=== PATIENT | male | born 1955 | race African-American/Black ===

== ENCOUNTER 2018-03-30 02:49 | Observation (INO) | payer MEDICAID ==
[2018-03-30] VITALS (7 sets, daily range): BP systolic 120–189; BP diastolic 70–108; Ht 190.5 cm; Wt 112.3 kg
[~2018-03-30] VITALS: Ht 190.5 cm; Wt 112.3 kg
--- NOTE | ~2018-03-30 | HEMODYNAMI ---
PATIENT:Jose Guadalupe DENNIS MEDICAL RECORD: [id number] : 55 LOCATION:[facility] [address] ADMISSION DATE: 03/30/18 Generatedon:03/31/201815:56 Patient name: Jose Guadalupe DENNIS Patient #: [id number] SSN: : 1954 Date of study: 03/31/2018 Page: Of Hemodynamic Procedure Report Patient Data Patient Demographics Procedure consent was obtained First Name: Jose Guadalupe Gender: Male Last Name: SONNY : 1955 Middle Initial: D Age: 63 year(s) Patient #: [id number] Race: Black Additional ID: [id number] Contact details Address: [address] State: [place] City: [place] Zip code: [address] Past Medical History Allergies Allergen Reaction Date Comments Reported Other allergy 03/31/2018 TRAZODONE, ZOMIG Admission Admission Data Admission Date: 03/30/2018 Admission Time: 4:26 Room #: D.2139 Height (in.): 75 BSA: 2.4 (m2) Height (cm.): 190.5 BMI: 30.86 (kg/m2) Weight (lbs.): 246.92 Weight (kg.): 112 Lab Results Lab Result Date: 03/31/2018 Lab Result Time: 0:00 Biochemistry Name Units Result Min Max BUN mg/dl 14 --(--*-)-- 7 18 Creatinine mg/dl 1.3 --(---*)-- 0.6 1.3 CBC Name Units Result Min Max Hemoglobin g/dl 12.2 *-(----)-- 13.5 17.5 Procedure Procedure Types Cath Procedure Diagnostic Procedure LHC LHC w/Coronaries w/Grafts Sedation Charges Moderate Sedation up to 15 minutes Procedure Description Procedure Date Procedure Date: 03/31/2018 Procedure Start Time: 15:32 Procedure End Time: 15:50 Procedure Staff Name Function Ilya Melo MD Performing Physician Jodi Britton RT Monitor Lisa Alves RT Scrub Cooper Rootorah RT Scrub Jose Guadalupe Clay RN Nurse Baldemar Mcintyre RN Nurse Procedure Data Cath Procedure Fluoroscopy Diagnostic fluoroscopy Total fluoroscopy Time: 5.6 time: 5.6 min min Diagnostic fluoroscopy Total fluoroscopy dose: 784 dose: 784 mGy mGy Contrast Material Contrast Material Type Amount (ml) Isovue 300 132 Entry Location Entry Primary Successful Side Size Upsize Upsize Entry Closure Succes sful Closure Location (Fr) 1 (Fr) 2 (Fr) Remarks Device Remarks Femoral Right 5 Fr Exoseal artery Estimated blood loss: 5 ml Diagnostic catheters Device Type Used For End Catheter Placement MULTIPACK JL 4.0 5Fr Procedure catheter DIAGNOSTIC JL 5 5Fr Procedure catheter ([id number]) MULTIPACK 3DRC 5Fr Procedure catheter MULTIPACK Pigtail 5 Fr Procedure catheter DIAGNOSTIC LCB 5Fr Procedure catheter ([id number]) DIAGNOSTIC AR2 MOD 5 Fr Procedure catheter ([id number]) Procedure Complications No complications Procedure Medications Medication Administration Route Dosage 0.9% NaCl I.V. 100 ml/hr Oxygen etCO2 Nasal cannula 2 l/min Heparin Flush Bag added to field 2 bags (1000units/500ml NS) Lidocaine 2% added to field 20 Versed I.V. 0.5 mg Fentanyl I.V. 50 mcg Hemodynamics Rest BSA: 2.4 (m2) HGB: 12.2 (g/dl) O2 Consumption: Estimated: 283.46 (ml/min) O2 Con sumption indexed: Estimated:118.11 (ml/min/m) Heart Rate: 73 (bpm) Pressure Samples Time Site Value (mmHg) Purpose Heart Use Rate(bpm) 15:40 LV 159/3,16 Snapshot 68 15:41 AO 159/87(117) Pullback 68 15:41 LV 161/11,22 Pullback 68 Gradients Valve Time Site 1 Site 2 Mean SEP/DFP Peak To Heart Use (mmHg) (sec/min) Peak Rate (mmHg) (bpm) Aortic 15:41 LV AO 1 13 2 68 161/11,22 159/87(117) Calculations Valve P-P Mean Valve Index Valve Source Name Gradient Area Flow (cm2) Aortic 2 1 2 1 Snapshots Pre Cath Intra NCS Post Cath Vital Signs Time Heart Resp SPO2 etCO2 NIBP (mmHg) Rhythm Pain Sedation Rate (ipm) (%) (mmHg) Status Level (bpm) 15:22:13 71 18 100 13.4 171/112(138) NSR 0 (11) 10(A) , No pain 15:26:38 70 22 100 29 172/109(135) NSR 0 (11) 10(A) , No pain 15:30:56 68 27 99 13.4 162/105(121) NSR 0 (11) 10(A) , No pain 15:35:14 68 12 100 34.3 163/102(145) NSR 0 (11) 10(A) , No pain 15:39:36 69 19 100 10.4 157/101(126) NSR 0 (11) 10(A) , No pain 15:43:56 69 31 100 26 173/102(136) NSR 0 (11) 10(A) , No pain 15:48:20 68 18 100 11.9 168/104(133) NSR 0 (11) 10(A) , No pain Medications Time Medication Route Dose Verified Delivered Reason Notes Eff ectiveness by by 15:27:44 0.9% NaCl I.V. 100 Baldemar Baldemar Per ml/hr Miguelina Mcintyre physician RN RN 15:27:54 Oxygen etCO2 2 Baldemar Baldemar Per Nasal l/min Miguelina Mcintyre physician cannula RN RN 15:28:06 Heparin Flush added 2 Baldemar Baldemar used for Bag to bags Lorigan Lorkamryn procedure (1000units/500ml [facility] RN RN NS) 15:28:20 Lidocaine 2% added 20ml Baldemar Baldemar for local to vial Lorigan Lorigan anesthetic field RN RN 15:28:40 Versed I.V. 0.5 Baldemar Baldemar for mg Lorigan Lorigan sedation RN RN 15:28:52 Fentanyl I.V. 50 Baldemar Baldemar for mcg Lorigan Lorigan sedation RN seafood preparer Log Time Note 15:00:30 Lisa Alves RT(R) sent for patient. Start room use. 15:00:31 Signed procedure consent form obtained from patient. 15:00:32 Diagnostic Cath status Elective 15:00:33 Time tracking: Regular hours (M-F 7:00 - 5:00) 15:00:36 Plan of Care:Hemodynamics will remain stable., Cardiac rhythm will remain stable., Comfort level will be maintained., Respiratory function will remain adequate., Patient/ family verbilizes understanding of procedure., Procedure tolerated without complication., Recovers from procedure without complications.. 15:04:00 Patient allergic to Other allergyTRAZODONE, ZOMIG 15:04:22 Patient Height : 75 inches 15:04:30 Patient Weight : 246.92 lbs 15:05:40 Lab Result : BUN 14 mg/dl 15:05:40 Lab Result : Hemoglobin 12.2 g/dl 15:05:40 Lab Result : Creatinine 1.3 mg/dl 15:08:38 Patient received from Med II to CCL 1 Alert and oriented. Tansferred to table in Supine position. 15:08:39 Warm blankets applied, and susan hugger turned on for patient comfort. 15:08:39 Correct patient and procedure confirmed by team. 15:08:40 ECG and BP/O2 sat monitors applied to patient. 15:20:59 Vital chart was started 15:21:01 Baseline sample Acquired. 15:21:04 Rhythm: sinus rhythm 15:21:06 Full Disclosure recording started 15:21:07 Pre-procedure instructions explained to patient. 15:21:07 Pre-op teaching completed and patient verbalized understanding. 15:21:26 Patient NPO since Midnight. 15:21:28 Is patient on blood thinner?No 15:21:30 Patient diabetic? Yes. 15:21:30 If diabetic: On Metformin? No 15:21:33 Previous problem with sedation/anesthesia? No ? 15:21:35 Snore? Yes 15:21:36 Sleep apnea? No 15:21:37 Deviated septum? No 15:21:39 Opens mouth fully? Yes 15:21:41 Sticks out tongue? Yes 15:21:51 Airway obstruction? Yes COPD 15:22:00 Dentures? Yes IN TIGHT 15:22:04 Pre procedure: right dorsailis pedis pulse 1+ Palpable, but thready & weak; easily obliterated 15:22:14 Lab results completed and on chart. 15:22:17 Right groin area was prepped with chlora-prep and draped in sterile fashion 15:22:18 Alarms reviewed by R. N. 15:22:19 Sharps counted by scrub and verified by R.N. 15:23:52 Use device set Femoral Dx 15:23:53 ACIST Syringe (28313) opened to sterile field. 15:23:54 Bag Decanter (2001S) opened to sterile field. 15:23:54 ACIST Hand Control (36979) opened to sterile field. 15:23:55 ACIST Manifold (42925) opened to sterile field. 15:23:56 Tegaderm 4 x 4 (1626W) opened to sterile field. 15:23:57 Medline Cath Pack ([id number]) opened to sterile field. 15:23:57 DIAGNOSTIC WIRE .035 260cm J wire (528410) opened to sterile field. 15:23:58 DIAGNOSTIC Multipack 5Fr catheter set ([id number]) opened to sterile field. 15:23:59 SHEATH 5FR [place] (HXA680) opened to sterile field. 15:27:17 --------ALL STOP TIME OUT------ 15::17 Final Timeout: patient, procedure, and site verified with staff and physician. All members of the team are in agreement. 15:27:20 Right groin site verified by team. 15:27:24 Fire Safety Assessment: A--An alcohol-based skin anteseptic being used preoperatively., C--Open oxygen or nitrous oxide is being used., D--An ESU, laser, or fiber-optic light is being used. 15:27:27 Physical assessment completed. ASA score P 2 - A patient with mild systemic disease as per Ilya Melo MD. 15:27:31 Sedation plan: IV Moderate Sedation Medication:Versed, Fentanyl 15:27:36 Zero performed for pressure channel P1 15::44 0.9% NaCl 100 ml/hr I.V. was administered by Baldemar Mcintyre RN; Per physician; 15::54 Oxygen 2 l/min etCO2 Nasal cannula was administered by Baldemar Mcintyre RN; Per physician; 15:28:06 Heparin Flush Bag (1000units/500ml NS) 2 bags added to field was administered by Baldemar Mcintyre RN; used for procedure; 15::20 Lidocaine 2% 20ml vial added to field was administered by Baldemar Mcintyre RN; for local anesthetic; 15:28:40 Versed 0.5 mg I.V. was administered by Baldemar Mcintyre RN; for sedation; 15::52 Fentanyl 50 mcg I.V. was administered by Baldemar Mcintyre RN; for sedation; 15:32:04 Procedure started. 15:32:09 Local anesthetic to right femoral artery with Lidocaine 2% by Ilya Melo MD.INITIAL ACCESS ONLY 15:33:12 A 5 Fr sheath was inserted into the Right Femoral artery 15:33:18 A MULTIPACK JL 4.0 5Fr catheter was advanced over the wire and used for Procedure. 15:34:36 UNABLE TO ENGAGE. CATH REMOVED 15:34:47 A DIAGNOSTIC JL 5 5Fr catheter ([id number]) was advanced over the wire and used for Procedure. 15:35:35 LCA angiography performed. 15:35:43 Catheter removed. 15:35:48 A MULTIPACK 3DRC 5Fr catheter was advanced over the wire and used for Procedure. 15:37:53 RCA angiography performed. 15:38:14 SVG to RCA angiography performed. 15:39:42 Catheter removed. 15:39:55 A MULTIPACK Pigtail 5 Fr catheter was advanced over the wire and used for Procedure. 15:40:25 LV gram done using JIMÉNEZ 15:40:28 Injector settings: Ml/sec: 10, Volume: 20, 15:40:54 LV hemodynamics recorded. 15:41:09 EF : 30 % 15:41:39 Aortic Root visualized 15:42:20 Catheter removed. 15:43:01 A DIAGNOSTIC LCB 5Fr catheter ([id number]) was advanced over the wire and used for Procedure. 15:43:45 SVG to Diag angiography performed. 15:45:07 Catheter removed. 15:46:00 A DIAGNOSTIC AR2 MOD 5 Fr catheter ([id number]) was advanced over the wire and used for Procedure. 15:47:02 Catheter removed. 15:47:17 EXOSEAL 5Fr (EX500) opened to sterile field. 15:48:04 Sheath removed intact; hemostasis achieved with Exoseal to the Right Femoral artery. 15:48:07 Procedure ended.(Physican Out) 15:48:44 Fluoroscopy time 05.60 minutes. 15:48:50 Fluoroscopy dose: 784 mGy 15:48:50 Flurop Dose total: 784 15:48:58 Contrast amount:Isovue 300 132ml. 15:49:00 Sharps counted by scrub and verified by R.N. 15:49:04 Post-op/insertion site Right Femoral artery dressed using a 4 x 4 and Tegaderm. 15:49:07 Post-procedure physical assessment completed. ASA score P 2 - A patient with mild systemic disease as per Ilya Melo MD. 15:49:09 Post procedure rhythm: sinus rhythm 15:49:11 Estimated blood loss: 5 ml 15:49:12 Post procedure instruction explained to patient.Patient verbalizes understanding. 15:49:12 Patient needs reinforcement of post procedure teaching. 15:49:45 Procedure type changed to Cath procedure, Diagnostic procedure, LHC, LHC w/Coronaries w/Grafts, Sedation Charges, Moderate Sedation up to 15 minutes 15:50:06 Procedure and supply charges have been captured, reviewed, submitted and are correct. 15:50:08 Procedure Complication : No complications 15:50:10 Vital chart was stopped 15:50:11 See physician's report for complete and final results. 15:50:13 Report given to PCU. 15:50:15 Patient transfered to PCU with Bed. 15:50:17 Procedure ended. 15:50:17 Full Disclosure recording stopped 15:50:21 End room use (Document Last) Device Usage Item Name Manufacture Quantity Catalog Hospital Part Current Minimal L ot# / Number Charge Number Stock Stock Serial# Code ACIST Acist 1 08750 692991 879350 754585 20 Syringe Medical (68954) Systems Inc Bag Microtek 1 913951 42306 155631 5 Decanter Medical Inc. () ACIST Hand Acist 1 18342 799552 383061 444520 5 Control Medical (91299) Systems Inc ACIST Acist 1 82815 968296 324655 076591 5 Manifold Medical (80257) Systems Inc Tegaderm 4 3M 1 1626W 311044 867495 016714 5 x 4 (1626W) Medline Medline 1 [id number] 236897 61665 813347 5 Cath Pack ([id number]) DIAGNOSTIC St Shiva 1 755479 929564 690358 671368 30 WIRE .035 260cm J wire (490834) DIAGNOSTIC Cardinal 1 [id number] 897610 62549 998906 30 Multipack Health 5Fr catheter set (SC2588) SHEATH 5FR Terumo 1 [id number] 127870 600580 477341 5 [place] (JWQ668) MULTIPACK Cardinal 1 696923 5 JL 4.0 5Fr Health catheter DIAGNOSTIC Cardinal 1 [id number] 755583 544364 176995 5 JL 5 5Fr Health catheter (792731F) MULTIPACK Cardinal 1 508478 5 3DRC 5Fr Health catheter MULTIPACK Cardinal 1 072750 5 Pigtail 5 Health Fr catheter DIAGNOSTIC Cardinal 1 [id number] 944574 003006 052410 5 LCB 5Fr Health catheter (198063M) DIAGNOSTIC Cardinal 1 [id number] 264892 960180 672374 20 AR2 MOD 5 Health Fr catheter (687569N) EXOSEAL 5Fr Cardinal 1 EX500 434432 316362 218660 10 (EX500) Health Signature Audit Desmet Stage Time Signature Unsigned Intra-Procedure 03/31/2018 Jodi Britton 3:56:10 PM RT(R) Signatures Monitor : Jodi Britton Signature : RT Date : Time : [id number] [place] [address]
[2018-03-30] MEDS ORDERED: FERROUS SULFAT325 MG PO (02:56)
[2018-03-30] MEDS ORDERED: ALPHAGAN P15 ML LEFT EYE (02:56)
[2018-03-30] MEDS ORDERED: HUMULIN 70100 UNIT/1 SC (02:56)
[2018-03-30] MEDS ORDERED: HYDRALAZINE HCL10 MG PO (02:56)
[2018-03-30] MEDS ORDERED: NEURONTIN 400400 MG PO (02:56)
[2018-03-30] MEDS ORDERED: LEVEMIR IN100 UNITS/ SC (02:57)
[2018-03-30] MEDS ORDERED: LIPITOR20 MG PO (02:57)
[2018-03-30 03:31] LABS: BASOPHILS 0.9 % (0-2); EOSINOPHILS 7.9 % (0-7); HEMATOCRIT 36.3 % (42.0-54.0); HEMOGLOBIN 11.9 g/dL (13.5-17.5); IMMATURE GRANULOCYTES 0.2 % (0-5); LYMPHOCYTES 24.1 % (15-50); MCH 26.9 pg (26.0-34.0); MCHC 32.8 g/dL (31.0-37.0); MCV 82.1 fL (80.0-100.0); MEAN PLATELET VOLUME 9.5 fL (7.4-10.4); MONOCYTES 13.7 % (2-11); NEUTROPHILS 53.2 % (40-80); PLATELET COUNT 230 10x3/uL (130-400); RBC 4.42 10x6/uL (4.20-6.10); RDW 14.3 % (11.5-14.5); WBC 5.7 10x3/uL (4.8-10.8)
[2018-03-30 03:56] LABS: ALBUMIN 2.7 g/dL (3.4-5.0); ANION GAP 3.6 mmol/L (8-16); BILIRUBIN - TOTAL 0.14 mg/dL (0.2-1.3); CALCIUM 8.3 mg/dL (8.5-10.1); CARBON DIOXIDE 22.7 mmol/L (21.0-32.0); CREATININE - SERUM 1.4 mg/dL (0.6-1.3); POTASSIUM - SERUM 3.3 mmol/L (3.5-5.1); PROTEIN - SERUM 6.4 g/dL (6.4-8.2); TROPONIN-I 0.034 ng/mL (0.000-0.060)
--- NOTE | 2018-03-30 06:24 | NUR ---
RECEIVED FROM ER VIA WC. ALERT/ORIENTED X3. AMBULATES WITH CANE. DENIES PAIN. IV IN L FA INTACT SL. ORIENTED TO ROOM AND CALL LIGHT.
[2018-03-30] MEDS ORDERED: NORVASC10 MG PO (06:48)
[2018-03-30] MEDS ORDERED: VITAMIN D31000 UNI2 PO (06:50)
[2018-03-30] MEDS ORDERED: ASPIRIN325 MG PO (06:51)
--- NOTE | 2018-03-30 07:04 | NUR ---
DOES NOT KNOW THE NAME OF PHARMACY. HE IS A RESIDENT OF [facility] AND USES THEIR PHARMACY.
--- NOTE | 2018-03-30 08:04 | NUR ---
RESTING QUIETLY NAD NOTED
--- NOTE | 2018-03-30 08:07 | NUR ---
DR. MCCORMACK STATES TO ME TO PLACE PT ON OXYGEN AND TO GIVE AM MEDS SPECIFICALLY LOVENOX AND TO PLACE PT ON TELEMETRY AND WATCH HIM CLOSELY BECAUSE HE SUSPECTS PT HAS A PE. HE ALSO STATES HE ORDERED A CTA.
--- NOTE | 2018-03-30 08:09 | NUR ---
PT PLACED ON OXYGEN AT 2L VIA NC AND TELEMETRY.
--- NOTE | 2018-03-30 08:18 | NUR ---
RUBYNOX INJ NOT IN PYXIS OR GLOBAL FIND. CALLED PHARMACY AND SPOKE WITH MAXWELL AND STATED TO HIM WANTS ME TO GIVE IT RIGHT NOW. HE STATED THEY ARE LOADING IT NOW AND WILL GET IT UP TO ME.
--- NOTE | 2018-03-30 08:39 | NUR ---
PT TO BE NPO FOR CTA. PT JUST ATE BREAKFAST. SPOKE WITH HARISH FROMCT HE STATES HE IS AWARE AND THAT HE WILL GET PT BEFORE LUNCH.
--- NOTE | 2018-03-30 08:41 | NUR ---
PT WANTING SCRUBS. SPOKE WITH EBONY AND THEY STATE THEY WILL BRING SOME UP.
--- NOTE | 2018-03-30 11:07 | NUR ---
PT REFUSED INSULIN COVERAGE FOR BS OF 156.
--- NOTE | 2018-03-30 12:33 | HP ---
PATIENT: Jose Guadalupe DENNIS MEDICAL RECORD: [id number] ACCOUNT: [id number] LOCATION:[address] : 55 ADMISSION DATE: 03/30/18 PCP: No PCP HISTORY AND PHYSICAL EXAMINATION REASON FOR ADMISSION: Shortness of breath. HISTORY OF PRESENT ILLNESS: The patient is a 63-year-old -Ivorian male, former , who states he was hospitalized at [facility] on 03/11/2018 because of relapse on alcohol and cocaine. He was discharged the 03/17/2018 and insurance referred him to [facility] in [place]. He has been there for 10 days and said he has been doing well and has gotten through his withdrawal symptoms. He states he has been chronically short of breath since July of last year when he had a pulmonary embolus. He was treated in the [facility] for 7 days and discharged on Xarelto. He states he was on Xarelto up until going into [place] and they did not give several of his medications including that. He notes increased shortness of breath with exertion in the last 4 days, woke him up from sleep last night, but he denied chest pain or hemoptysis. For that reason, he came into Emergency Room. On evaluation in the ED, the patient showed a mildly elevated proBNP and negative cardiac enzymes. Chest x-ray was performed showing no acute disease according to the ER physician. He was admitted to ar unassigned call for congestive heart failure. He has had no increasing peripheral edema and no history of heart failure. PAST MEDICAL HISTORY: PE in July of 2017, he said he did not have DVT. History of diabetes mellitus for 20 years, hyperlipidemia, hypertension fairly volatile, coronary artery disease with a 3-vessel CABG in 2004 and 2-vessel PTCA in 2017 at the [facility] [place]. 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 PAST SURGICAL HISTORY: Three-vessel CABG in 2004 in [place], [place]. PTCA 2 vessels in [facility] in 2017, right total knee replacement, right hip replacement. He has had a lumbar fusion and enucleated right eye and prosthesis placed. FAMILY HISTORY: Mother of hypertension and DC. Father of CVA. One brother and one sister with diabetes. ALLERGIES: TRAZODONE AND AMBIEN. HOME MEDICATIONS: Alphagan drops 1 drop left eye t.i.d., amlodipine 10 mg daily, vitamin D 1000 units daily, aspirin 325 mg a day, losartan 100 mg a day, triamterene 1 q.a.m., loratadine 10 mg a day, Wellbutrin 300 mg daily, multivitamin 1 daily, Levemir 34 units subq q.h.s., atorvastatin 40 mg at h.s., ferrous sulfate 325 one daily, gabapentin 400 mg p.o. t.i.d., hydralazine 25 mg p.o. q.8 hours, regular insulin 10 units b.i.d. a.c. He said he also takes Coreg, he is not sure what dose and Xarelto he is unsure what dose, but has been noncompliant on several of these drugs for the last 10 days. REVIEW OF SYSTEMS: GENERAL: No fever. HEENT: No recent visual changes in the left eye. He is blind in his right eye. RESPIRATORY: He has had exertional shortness of breath, worse in the last 4 days, severe last night, awakened from sleep. He denies chest pain, cough, hemoptysis, or increasing peripheral edema. CARDIAC: No exertional chest pain, claudication or edema. HISTORY AND PHYSICAL [id number] Jose Guadalupe DENNIS GASTROINTESTINAL: No nausea, vomiting, change in stools or blood per rectum, history of liver disease or ulcers. ENDOCRINE: Denies polyuria, polydipsia, heat or cold intolerance. NEUROLOGIC: No history of stroke, TIA, vascular headaches, or seizures. INTEGUMENT: No rash or itching. PSYCHIATRIC: Denies depressed mood. He was quite anxious coming off cocaine, but that has improved currently. PHYSICAL EXAMINATION: VITAL SIGNS: His height 6 feet 3 inches, weight is 248 pounds, heart rate is 83 and regular, respirations are 18, blood pressure was 189/108 initially with a sat of 97% on room air. HEENT: Normocephalic. Right eye shows prosthesis. Left eye shows pinpoint pupils, but reactive. Oropharynx unremarkable. NECK: No bruits or masses. CHEST: Distant breath sounds without wheeze or rales. No crackles. HEART: Regular rate without MGR. PMI appropriate. ABDOMEN: Obese, soft, nontender. No masses or bruits noted. GENITOURINARY: Deferred. EXTREMITIES: He has a scar over right hip and right knee from previous replacement. He has no peripheral edema. NEUROLOGICAL: Oriented to person, place, and time. Cranial nerves intact. Gait is normal. He has no tremor appreciated. LABORATORY DATA: White count of 5700, H&H of 11.9 and 36.3 and normal diff. Chemistry: Sodium is 124, potassium is 3.3, BUN and creatinine are 18 and 1.4, glucose is 107. ProBNP is 1033. Lipase is normal. D-dimer is 0.5. Cardiac enzymes are negative times 2. Chest x-ray reportedly clear. EKG shows sinus rhythm, rate of 84, left atrial enlargement, first degree AV block, no old EKG to compare. ASSESSMENT: 1. Dyspnea with history of PE, off of Xarelto, concern for recurrence. 2. CAD, diabetes mellitus, uncontrolled hypertension, due to recent medication noncompliance. History of polydrug abuse, alcoholism, hyponatremia, hypokalemia, probably due to diuretic therapy. PLAN: The patient will be placed on monitor. We will obtain a CTA PE protocol. He has had cardiology consult placed for hypertension management. We will check echo, telemetry. Further workup pending clinical course. TRANSINT:[id number] Voice Confirmation ID: [id number] DOCUMENT ID: [id number] KALA MCCORMACK MD at 1233 CC: [id number] DICTATION DATE: 03/30/18809 [employer] PURCHASE AND SALE CLERK: 03/30/18 0841 ADM IN [id number] [place] [address]
--- NOTE | 2018-03-30 12:59 | NUR ---
PT TAKEN FOR CTA VIA WC.
--- NOTE | 2018-03-30 15:28 | NUR ---
DR. MCCORMACK WANTED CTA RESULTS CALLED INTO HIM. CALLED DR. MCCORMACK'S OFFICE AND GOT VOICEMAIL MACHINE. LEFT VOICEMAIL.
--- NOTE | 2018-03-30 19:25 | NUR ---
ALERT/AWAKE SITTING IN BEDSIDE CHAIR. DENIES PAIN OR ANY NEEDS. IV IN L FA INTACT WITH NS INFUSING AT 75ML/HR. ORIENTED TO CALL LIGHT FOR ANY NEEDS.
--- NOTE | 2018-03-30 22:10 | NUR ---
SPILLED WATER ON FLOOR. CLEANED UP WITH TOWELS. REQUESTED ANOTHER SET OF SOCKS.
[2018-03-31] VITALS (7 sets, daily range): BP systolic 146–182; BP diastolic 77–109
--- NOTE | 2018-03-31 03:15 | NUR ---
RESTING WITH EYES CLOSED. SNORING LIGHTLY. NO S/S OF DISTRESS OR DISCOMFORT. CL IN REACH.
--- NOTE | 2018-03-31 06:00 | NUR ---
CHECKED BS AT 130. ADMIN EYE DROPS. DENIES ANY OTHER NEEDS.
--- NOTE | 2018-03-31 08:09 | NUR ---
AM MEDS GIVEN AT THIS TIME. PT DENIES ANY NEEDS AT THIS TIME. CALL LIGHT IN REACH, NAD NOTED, WILL CONTINUE TO MONITOR.
--- NOTE | 2018-03-31 09:02 | NUR ---
NOTIFIED VIVIANE WITH ACID REGENERATOR THAT PT HAD LOVENOX INJECTION THIS AM. VIVIANE STATED THAT THEY WOULD TAKE PT TO ACID REGENERATOR THIS AFTERNOON. INFORMED PT.
[2018-03-31 09:34] LABS: BASOPHILS 1.1 % (0-2); EOSINOPHILS 7.2 % (0-7); HEMATOCRIT 38.4 % (42.0-54.0); HEMOGLOBIN 12.2 g/dL (13.5-17.5); IMMATURE GRANULOCYTES 0.2 % (0-5); LYMPHOCYTES 25.2 % (15-50); MCH 25.7 pg (26.0-34.0); MCHC 31.8 g/dL (31.0-37.0); MCV 80.8 fL (80.0-100.0); MEAN PLATELET VOLUME 9.9 fL (7.4-10.4); MONOCYTES 10.9 % (2-11); NEUTROPHILS 55.4 % (40-80); PLATELET COUNT 232 10x3/uL (130-400); RBC 4.75 10x6/uL (4.20-6.10); RDW 14.1 % (11.5-14.5); WBC 5.7 10x3/uL (4.8-10.8)
[2018-03-31 09:37] LABS: ANION GAP 11.5 mmol/L (8-16); CALCIUM 8.6 mg/dL (8.5-10.1); CREATININE - SERUM 1.3 mg/dL (0.6-1.3); POTASSIUM - SERUM 3.5 mmol/L (3.5-5.1)
--- NOTE | 2018-03-31 13:59 | NUR ---
PT RESTING COMFORTABLY IN BED, DENIES ANY NEEDS AT THIS TIME. CALL LIGHT IN REACH, NAD NOTED, WILL CONTINUE TO MONITOR.
--- NOTE | 2018-03-31 15:09 | NUR ---
PT TRANSFERED TO BUMPER MACHINE OPERATOR.
--- NOTE | 2018-03-31 16:14 | NUR ---
RECEIVED PT BACK TO ROOM 2139 VIA BED, PT STILL DROWSY BUT EASILY AROUSES TO VOICE. VITAL SIGNS STABLE, PLACED PT ON FREQUENT VITAL SIGNS. RT GROIN DRESSING CDI, NO SIGN OF BLEEDING OR HEMATOMA NOTED. PT ASKIN FOR SOMETHING TO EAT, WILL ORDER HIM A CHEESEBURGER. PT DENIES ANY OTHER NEEDS AT THIS TIME. CALL LIGHT IN REACH,NAD NOTED, WILL CONTINUE TO MONITOR.
--- NOTE | 2018-03-31 16:46 | NUR ---
NO CHANGES TO GROIN FROM PREVIOUS ASSESSMENT.
--- NOTE | 2018-03-31 19:15 | NUR ---
PT UP WALKING AROUND IN HALLS TO AND FROM VENDING MACHINE. PT ALERT AND ORIENTED. DENIES ANY PAIN OR NEEDS AT THIS TIME. WILL CONTINUE TO MONITOR.
--- NOTE | 2018-03-31 21:00 | NUR ---
PT IN ROOM SITTING ON SIDE OF BED WATCHING TV. PT DENIES ANY PAIN OR NEEDS AT THIS TIME. EDUCATED PT ON IMPORTANCE OF GETTING LAYING DOWN AND GETTING REST. PT UNDERSTOOD AND IS NOW RESTING . PT DENIES ANY NEEDS OR PAIN AT THIS TIME. CALL LIGHT WITHIN REACH. WILL CONTINUE TO MONITOR.
[2018-04-01] VITALS (7 sets, daily range): BP systolic 160–198; BP diastolic 88–111
--- NOTE | 2018-04-01 03:48 | NUR ---
PT AWAKE WATCHING TV, DENIES ANY NEEDS. ALERT, RESP EVEN AND UNLABORED. BEDLOW AND CALL LIGHT IN REACH. PT WILL CALL FOR ASSIST WHEN NEEDED. WILL CPOC
--- NOTE | 2018-04-01 03:49 | NUR ---
PT LAYING IN BED WITH ALERT AND ORIENTED. RESPIRATIONS EVEN AND UNLABORED. BED LOW CALL LIGHT WITHIN REACH. WILL CONTINUE TO MONITOR.
--- NOTE | 2018-04-01 04:19 | NUR ---
PT BP-198/111. GAVE PT PRN CLONIDINE. SEE MAR. PT SITTING UP IN BED. WILL CONTINUE TO MONITOR.
[2018-04-01 04:37] LABS: ANION GAP 13.3 mmol/L (8-16); CALCIUM 8.5 mg/dL (8.5-10.1); CARBON DIOXIDE 24.5 mmol/L (21.0-32.0); CREATININE - SERUM 1.5 mg/dL (0.6-1.3); POTASSIUM - SERUM 3.8 mmol/L (3.5-5.1)
--- NOTE | 2018-04-01 05:12 | NUR ---
PT LAYING IN BED ALERT AND ORIENTED. BP-166/98 P-83. BED LOW CALL LIGHT WITHIN REACH. WILL CONTINUE TO MONITOR.
--- NOTE | 2018-04-01 08:00 | NUR ---
RECIEVED BEDSIDE REPORT. AM ROUNDS COMPLETED. PT VSS, AA0X3 RR UNLABORED, NO S/S OF DISTRESS. PT COMPLAIN ON PAIN IN THE HEAD AND LOWER BACK. TYLENOL 500MG GIVEN ALONGSIDE AM MEDS. WILL REASSESS PT IN 45MIN. PT DENIES ANY FURTHER NEEDS AT THIS TIME. WILL CPOC. CL IN REACH, SR UP 2X, BED IN LOW. WILL CTM.
[2018-04-01] MEDS ORDERED: COREG 3.1253.125 MG PO (10:14)
[2018-04-01] MEDS ORDERED: CARDURA4 MG PO (10:19)
[2018-04-01] MEDS ORDERED: ISOSORBIDE DINI30 MG PO (10:20)
[2018-04-01] MEDS ORDERED: COZAAR100 MG PO (10:21)
[2018-04-01] MEDS ORDERED: XALATAN 0.0052.5 ML LEFT EYE (10:21)
--- NOTE | 2018-04-01 16:40 | MORECARE ---
CASE MANAGEMENT DISCHARGE SUMMARY PATIENT: Jose Guadalupe DENNIS UNIT: [id number] ADM DATE: 03/30/18 AGE: 63 : 55 SEX: M ROOM/BED: D.2139 AUTHOR: ELVIN DUNN PHYSICIAN: REFERRING PHYSICIAN: SANDIE BARR MD DATE OF SERVICE: 04/01/18 Discharge Plan Patient Name: Jose Guadalupe DENNIS [facility] [facility] 1955 Planned Disposition: Other Type of Facility Anticipated Discharge Date: 04/01/18 Discharge Date: Expected LOS: 2 Initial Reviewer: [email or web address] Initial Review Date: 04/01/2018 Generated: 04/01/18 5:39 pm DCPIA - Discharge Planning Initial Assessment Updated by [email or web address]: Tenzin Temple on 04/01/18 4:36 pm * Is the patient Alert and Oriented? Yes * How many steps to enter\exit or inside your home? NONE * PCP DR. SÁCNHEZ, [facility] [place] * Pharmacy [facility] OR [facility] * Preadmission Environment Other * Other Environment [facility] * Facility Name [place], [place] * ADLs Independent * Equipment Cane * Other Equipment [facility] MEDICAL EQUIPMENT PROVIDER * List name and contact numbers for known caregivers / representatives who currently or will assist patient after discharge: RAMIRO WEST, FRIEND, * Verbal permission to speak to the caregivers and representatives has been obtained from the patient. N/A * Community resources currently utilized Other * Please name any agencies selected above. [facility] 30 DAY ADDICTION RECOVERY PROGRAM * Additional services required to return to the preadmission environment? No * Can the patient safely return to the preadmission environment? Yes * Has this patient been hospitalized within the prior 30 days at any hospital? No Patient Name: Jose Guadalupe DENNIS Page 25162 at 1640 All edits/amendments must be made on the electronic document DICTATION DATE: 04/01/18 1639 FRUIT GROWER: KEITH 04/01/18 1639 RPT#: [id number] DC DATE: STATUS: ADM IN [facility] [address] [place] [address] END OF REPORT
--- NOTE | 2018-04-01 16:48 | MORECARE ---
CASE MANAGEMENT DISCHARGE SUMMARY PATIENT: Jose Guadalupe DENNIS UNIT: [id number] ADM DATE: 03/30/18 AGE: 63 : 55 SEX: M ROOM/BED: D.2139 AUTHOR: ELVIN DUNN PHYSICIAN: REFERRING PHYSICIAN: SANDIE BARR MD DATE OF SERVICE: 04/01/18 Discharge Plan Patient Name: Jose Guadalupe DENNIS Facility: [facility]:[place] : 1955 Planned Disposition: Other Type of Facility Anticipated Discharge Date: 04/01/18 Discharge Date: Expected LOS: 2 Initial Reviewer: [email or web address] Initial Review Date: 04/01/2018 Generated: 04/01/18 5:48 pm DCPIA - Discharge Planning Initial Assessment Updated by [email or web address]: Tenzin Temple on 04/01/18 4:36 pm * Is the patient Alert and Oriented? Yes * How many steps to enter\exit or inside your home? NONE * PCP DR. SÁNCHEZ, [facility] IN [place] * Pharmacy [facility] OR [facility] * Preadmission Environment Other * Other Environment [facility] * Facility Name [place], [place] * ADLs Independent * Equipment Cane * Other Equipment [facility] MEDICAL EQUIPMENT PROVIDER * List name and contact numbers for known caregivers / representatives who currently or will assist patient after discharge: RAMIRO WEST, FRIEND, * Verbal permission to speak to the caregivers and representatives has been obtained from the patient. N/A * Community resources currently utilized Other * Please name any agencies selected above. [facility] 30 DAY ADDICTION RECOVERY PROGRAM * Additional services required to return to the preadmission environment? No * Can the patient safely return to the preadmission environment? Yes * Has this patient been hospitalized within the prior 30 days at any hospital? No External Providers External Provider: OTHER-OTHER Next Contact Date: 04/01/2018 Service Request Date: Service Type: Resolution: Reviewer: Comments: Last DP export: 04/01/18 3:39 pm Patient Name: Jose Guadalupe DENNIS Page 70516 at 1648 All edits/amendments must be made on the electronic document DICTATION DATE: 04/01/181647 IRISH MOSS BLEACHER: KEITH 04/01/181647 RPT#: [id number] DC DATE: STATUS: ADM IN [facility] [address] [place] [address] END OF REPORT
--- NOTE | 2018-04-01 16:50 | NUR ---
PT CURRENTLY SLEEPING ON THE COUCH. DENIES ANY NEEDS AT THIS TIME. PM MEDS GIVEN ALONGSIDE HUMULIN. PT DENIES ANY FURTHER NEEDS AT THIS TIME WILL CPOC.
--- NOTE | 2018-04-01 17:06 | MORECARE ---
CASE MANAGEMENT DISCHARGE SUMMARY PATIENT: Jose Guadalupe DENNIS UNIT: [id number] ADM DATE: 03/30/18 AGE: 63 : 55 SEX: M ROOM/BED: D.2133 AUTHOR: MONADOC PHYSICIAN: REFERRING PHYSICIAN: SANDIE BARR MD DATE OF SERVICE: 04/01/18 Discharge Plan Patient Name: Jose Guadalupe DENNIS [facility] [facility] 1955 Planned Disposition: Other Type of Facility Anticipated Discharge Date: 04/01/18 Discharge Date: Expected LOS: 2 Initial Reviewer: [email or web address] Initial Review Date: 04/01/2018 Generated: 04/01/18 6:06 pm Comments DCP- Discharge Planning Updated by [email or web address]: Tenzin Temple on 04/01/18 4:[address] Patient Name: Jose Guadalupe DENNIS Admission Status: ER Accout number: [id number] Admission Date: 03-30-2018 : 1955 Admission Diagnosis: Attending: SANDIE BARR Current LOS: 2 Anticipated DC Date: 04-01-2018 Planned Disposition: Other Type of Facility Primary Insurance: [place] PRIVATE OPTIONS [place] PLANNED EXTERNAL PROVIDER: BON JIANG Discharge Planning Comments: CM RECEIVED ORDER TO DISCHARGE ARRANGEMENT AND FOLLOW UP WITH [facility] CARDIOLOGY MAY DISCHARGE TODAY. CM MET WITH PT IN ROOM TO DISCUSS DISCHARGE PLANNING AND NEEDS. PT REPORTS LIVING AT HOME INDEPENDENTLY WITH A FRIEND. PT IS CURRENTLY IN [facility] 30 DAY ADDICTION RECOVERY PROGRAM INPATIENT. PT HAS CANE, MEDICAL EQUIPMENT PROVIDER PREFERENCE IS [facility]. PT HAS NO OUTSIDE SERVICES ASSISTING IN THE HOME. CM DISCUSSED AVAILABILITY OF HOME HEALTH, REHAB SERVICES AND MEDICAL EQUIPMENT. PT DENIES DISCHARGE NEEDS, REPORTS [facility] COUNSELOR WILL PICK HIM UP FOR DISCHARGE WHEN PT CALLS; PT HAS PHONE NUMBER. PT IS ACTIVE WITH [facility] IN [place], DOES NOT HAVE CURRENT CARDIOLOGY APPOINTMENT THAT HE IS AWARE OF. PT WOULD LIKE CM TO CONTACT THE [facility] FOR HIM AND MAKE THE APPOINTMENT. CM CALLED [facility], , SPOKE TO GENESIS WHO INFORMED CM THAT CM WILL NEED TO FAX CONSULT ORDER AND RECORDS TO DR. SÁNCHEZ AT FAX [phone]. THE DOCTOR WILL REVIEW ORDER AND RECORDS; IF IN AGREEMENT, THEY WILL REFER PT TO CARDIOLOGY CLINIC AND CALL PT WITH APPOINTMENT DATE/TIME. CM FAXED RECORDS REQUESTED WITH THE ORDER TO [facility], ANITRA SÁNCHEZ. PT NOTIFIED AND REPORTS AGREEMENT WITH PLAN. PT WILL DISCHARGE BACK TO [facility] ADDICTION RECOVERY PROGRAM, PT REPORTS HE WILL CALL FOR TIGHTENING MACHINE OPERATOR AT DISCHARGE. [facility] HAS BEEN NOTIFIED OF NEEDED APPOINTMENT AND FAXED ORDER/RECORDS; [facility] DOCTOR WILL REVIEW RECORDS AND REFER TO CARDIOLOGY IF THE [facility] DOCTOR AGREES WITH NEED. Platform Builder: Tenzin Temple DCPIA - Discharge Planning Initial Assessment Updated by [id number]: Tenzin Temple on 04/01/18 4:36 pm * Is the patient Alert and Oriented? Yes * How many steps to enter\exit or inside your home? NONE * PCP DR. SÁNCHEZ, [facility] IN [place] * Pharmacy [facility] OR [facility] IN [place] * Preadmission Environment Other * Other Environment [facility] * Facility Name [place], [place] * ADLs Independent * Equipment Cane * Other Equipment [place] - MEDICAL EQUIPMENT PROVIDER * List name and contact numbers for known caregivers / representatives who currently or will assist patient after discharge: RAMIRO WEST, FRIEND, * Verbal permission to speak to the caregivers and representatives has been obtained from the patient. N/A * Community resources currently utilized Other * Please name any agencies selected above. [facility] 30 DAY ADDICTION RECOVERY PROGRAM * Additional services required to return to the preadmission environment? No * Can the patient safely return to the preadmission environment? Yes * Has this patient been hospitalized within the prior 30 days at any hospital? No Last DP export: 04/01/18 3:48 pm Patient Name: Jose Guadalupe DENNIS Page 27719 at 1706 All edits/amendments must be made on the electronic document DICTATION DATE: 04/01/181705 PUMP AND STILL OPERATOR: KEITH 04/01/181705 RPT#: [id number] DC DATE: STATUS: ADM IN [facility] [address] [place] [address] END OF REPORT
--- NOTE | 2018-04-01 17:45 | MORECARE ---
CASE MANAGEMENT DISCHARGE SUMMARY PATIENT: Jose Guadalupe DENNIS UNIT: [id number] ADM DATE: 03/30/18 AGE: 63 : 55 SEX: M ROOM/BED: D.2130 AUTHOR: MONADOC PHYSICIAN: REFERRING PHYSICIAN: SANDIE BARR MD DATE OF SERVICE: 04/01/18 Discharge Plan Patient Name: Jose Guadalupe DENNIS [facility] [facility] 1955 Planned Disposition: Other Type of Facility Anticipated Discharge Date: 04/01/18 Discharge Date: Expected LOS: 2 Initial Reviewer: [id number] Initial Review Date: 04/01/2018 Generated: 04/01/18 6:45 pm Comments DCP- Discharge Planning Updated by [email or web address]: Tenzin Temple on 04/01/18 4:[address] Patient Name: Jose Guadalupe DENNIS Admission Status: ER Accout number: [id number] Admission Date: 03-30-2018 : 1955 Admission Diagnosis: Attending: SANDIE BARR Current LOS: 2 Anticipated DC Date: 04-01-2018 Planned Disposition: Other Type of Facility Primary Insurance: [place] PRIVATE [employer]IONS [place] PLANNED EXTERNAL PROVIDER: BON JIANG Discharge Planning Comments: CM RECEIVED ORDER TO DISCHARGE ARRANGEMENT AND FOLLOW UP WITH [facility] CARDIOLOGY MAY DISCHARGE TODAY. CM MET WITH PT IN ROOM TO DISCUSS DISCHARGE PLANNING AND NEEDS. PT REPORTS LIVING AT HOME INDEPENDENTLY WITH A FRIEND. PT IS CURRENTLY IN [facility] 30 DAY ADDICTION RECOVERY PROGRAM INPATIENT. PT HAS CANE, MEDICAL EQUIPMENT PROVIDER PREFERENCE IS [facility]. PT HAS NO OUTSIDE SERVICES ASSISTING IN THE HOME. CM DISCUSSED AVAILABILITY OF HOME HEALTH, REHAB SERVICES AND MEDICAL EQUIPMENT. PT DENIES DISCHARGE NEEDS, REPORTS [facility] COUNSELOR WILL PICK HIM UP FOR DISCHARGE WHEN PT CALLS; PT HAS PHONE NUMBER. PT IS ACTIVE WITH [facility] IN [place], DOES NOT HAVE CURRENT CARDIOLOGY APPOINTMENT THAT HE IS AWARE OF. PT WOULD LIKE CM TO CONTACT THE [facility] FOR HIM AND MAKE THE APPOINTMENT. CM CALLED [facility], , SPOKE TO GENESIS WHO INFORMED CM THAT CM WILL NEED TO FAX CONSULT ORDER AND RECORDS TO DR. SÁNCHEZ AT FAX [phone]. THE DOCTOR WILL REVIEW ORDER AND RECORDS; IF IN AGREEMENT, THEY WILL REFER PT TO CARDIOLOGY CLINIC AND CALL PT WITH APPOINTMENT DATE/TIME. CM FAXED RECORDS REQUESTED WITH THE ORDER TO [facility], ANITRA SÁNCHEZ. PT NOTIFIED AND REPORTS AGREEMENT WITH PLAN. PT WILL DISCHARGE BACK TO [facility] ADDICTION RECOVERY PROGRAM, PT REPORTS HE WILL CALL FOR SNAILER AT DISCHARGE. [facility] HAS BEEN NOTIFIED OF NEEDED APPOINTMENT AND FAXED ORDER/RECORDS; [facility] DOCTOR WILL REVIEW RECORDS AND REFER TO CARDIOLOGY IF THE [facility] DOCTOR AGREES WITH NEED. Home Health Attendant: Tenzin Temple DCPIA - Discharge Planning Initial Assessment Updated by [id number]: Tenzin Temple on 04/01/18 4:36 pm * Is the patient Alert and Oriented? Yes * How many steps to enter\exit or inside your home? NONE * PCP DR. SÁNCHEZ, [facility] IN [place] * Pharmacy [facility] OR [facility] IN [place] * Preadmission Environment Other * Other Environment [facility] * Facility Name [place], [place] * ADLs Independent * Equipment Cane * Other Equipment [facility] - MEDICAL EQUIPMENT PROVIDER * List name and contact numbers for known caregivers / representatives who currently or will assist patient after discharge: RAMIRO WEST, FRIEND, * Verbal permission to speak to the caregivers and representatives has been obtained from the patient. N/A * Community resources currently utilized Other * Please name any agencies selected above. [facility] 30 DAY ADDICTION RECOVERY PROGRAM * Additional services required to return to the preadmission environment? No * Can the patient safely return to the preadmission environment? Yes * Has this patient been hospitalized within the prior 30 days at any hospital? No Last DP export: 04/01/18 4:06 pm Patient Name: Jose Guadalupe DENNIS Page [phone] at 1744 All edits/amendments must be made on the electronic document DICTATION DATE: 04/01/181743 LIQUEFACTION PLANT OPERATOR: KEITH 04/01/181743 RPT#: [id number] DC DATE: STATUS: ADM IN [facility] [address] [place] [address] END OF REPORT
--- NOTE | 2018-04-01 19:30 | NUR ---
PT SITTING UP IN CHAIR ALERT AND ORIENTED. PT DENIES ANY PAIN OR NEEDS AT THIS TIME. BED LOW CALL LIGHT WITHIN REACH. VITALS STABLE. WILL CONTINUE TO MONITOR.
[2018-04-02] VITALS: BP 151/96
[2018-04-02 00:02] VITALS: BP 156/96
--- NOTE | 2018-04-02 01:51 | NUR ---
PT RESTING IN BED RR-EVEN AND UNLABORED. NO S/S OF DISTRESS. BED LOW CALL LIGHT WITHIN REACH. WILL CONTINUE TO MONITOR.
[2018-04-02 04:00] VITALS: BP 177/99
[2018-04-02 04:01] VITALS: BP 162/99
--- NOTE | 2018-04-02 04:26 | NUR ---
BOAT RIGGER AT BEDSIDE TO OBTAIN VITALS, CALL LIGHT IN REACH. WILL CONTINUE WITH PLAN OF CARE.
[2018-04-02] MEDS ORDERED: COREG6.25 MG PO (07:36)
[2018-04-02] MEDS ORDERED: HYDRALAZINE HCL25 MG PO (07:36)
[2018-04-02] MEDS ORDERED: ALDACTONE25 MG PO (07:37)
--- NOTE | 2018-04-02 07:41 | NUR ---
ROUNDING DONE WITH PATIENT AMBULATING BACK TO ROOM PAST GETTING HIS BREAKFAST. ON HEART MONITOR SHOWING SR W OCC PAC, HR 79. LEFT FA PIV SALINE LOCK.
--- NOTE | 2018-04-02 09:36 | MORECARE ---
CASE MANAGEMENT DISCHARGE SUMMARY PATIENT: Jose Guadalupe DENNIS UNIT: [id number] ADM DATE: 03/30/18 AGE: 63 : 55 SEX: M ROOM/BED: D.2139 AUTHOR: ELVIN DUNN PHYSICIAN: REFERRING PHYSICIAN: SANDIE BARR MD DATE OF SERVICE: 04/02/18 Discharge Plan Patient Name: Jose Guadalupe DENNIS Facility: [facility]:[place] : 1955 Planned Disposition: Other Type of Facility Anticipated Discharge Date: 04/01/18 Discharge Date: Expected LOS: 2 Initial Reviewer: [email or web address] Initial Review Date: 04/01/2018 Generated: 04/02/18 10:35 am Comments DCP- Discharge Planning Updated by [email or web address]: Tenzin Temple on 04/02/18 8:[address] Patient Name: Jose Guadalupe DENNIS Encounter No: [id number] : 1955 Primary Insurance: [employer] PRIVATE [employer] DARREN Anticipated DC Date: 04-01-2018 Planned Disposition: Other Type of Facility External Planned Provider: BON JIANG DCP follow-up note: CM CALLED [facility], , SPOKE TO DU WHO ADVISED THAT THEY CAN DO BLOOD DRAW AT [facility] IF DR. SÁNCHEZ OF [facility] (PATIENTS PRIMARY CARE DOCTOR) ORDERS IT. PLASTICS SEASONER OPERATOR NURSE NOTIFIED. Tenzin Temple CASE MANAGEMENT DCP- Discharge Planning Updated by [id number]: Tenzin Temple on 04/01/18 4:[address] Patient Name: Jose Guadalupe DENNIS Admission Status: ER Accout number: [id number] Admission Date: 03-30-2018 : 1955 Admission Diagnosis: Attending: SANDIE BARR Current LOS: 2 Anticipated DC Date: 04-01-2018 Planned Disposition: Other Type of Facility Primary Insurance: [employer]IVATE [employer] DARREN PLANNED EXTERNAL PROVIDER: BON JIANG Discharge Planning Comments: CM RECEIVED ORDER TO DISCHARGE ARRANGEMENT AND FOLLOW UP WITH [facility] CARDIOLOGY MAY DISCHARGE TODAY. CM MET WITH PT IN ROOM TO DISCUSS DISCHARGE PLANNING AND NEEDS. PT REPORTS LIVING AT HOME INDEPENDENTLY WITH A FRIEND. PT IS CURRENTLY IN [employer] 30 DAY ADDICTION RECOVERY PROGRAM INPATIENT. PT HAS CANE, MEDICAL EQUIPMENT PROVIDER PREFERENCE IS [facility]. PT HAS NO OUTSIDE SERVICES ASSISTING IN THE HOME. CM DISCUSSED AVAILABILITY OF HOME HEALTH, REHAB SERVICES AND MEDICAL EQUIPMENT. PT DENIES DISCHARGE NEEDS, REPORTS [facility] COUNSELOR WILL PICK HIM UP FOR DISCHARGE WHEN PT CALLS; PT HAS PHONE NUMBER. PT IS ACTIVE WITH [facility] [place], DOES NOT HAVE CURRENT CARDIOLOGY APPOINTMENT THAT HE IS AWARE OF. PT WOULD LIKE CM TO CONTACT THE [facility] FOR HIM AND MAKE THE APPOINTMENT. CM CALLED [facility], , SPOKE TO GENESIS WHO INFORMED CM THAT CM WILL NEED TO FAX CONSULT ORDER AND RECORDS TO DR. SÁNCHEZ AT FAX [phone]. THE DOCTOR WILL REVIEW ORDER AND RECORDS; IF IN AGREEMENT, THEY WILL REFER PT TO CARDIOLOGY CLINIC AND CALL PT WITH APPOINTMENT DATE/TIME. CM FAXED RECORDS REQUESTED WITH THE ORDER TO [facility], ANITRA SÁNCHEZ. PT NOTIFIED AND REPORTS AGREEMENT WITH PLAN. PT WILL DISCHARGE BACK TO [facility] ADDICTION RECOVERY PROGRAM, PT REPORTS HE WILL CALL FOR WHOLESALE AGRONOMIST AT DISCHARGE. [facility] HAS BEEN NOTIFIED OF NEEDED APPOINTMENT AND FAXED ORDER/RECORDS; [facility] DOCTOR WILL REVIEW RECORDS AND REFER TO CARDIOLOGY IF THE [facility] DOCTOR AGREES WITH NEED. Svp Programmatic Tv: Tenzin Temple DCPIA - Discharge Planning Initial Assessment Updated by [id number]: Tenzin Temple on 04/01/18 4:36 pm * Is the patient Alert and Oriented? Yes * How many steps to enter\exit or inside your home? NONE * PCP DR. SÁNCHEZ, [facility] IN [place] * Pharmacy [facility] OR [facility] IN [place] * Preadmission Environment Other * Other Environment [facility] * Facility Name [place], [place] * ADLs Independent * Equipment Cane * Other Equipment [facility] - MEDICAL EQUIPMENT PROVIDER * List name and contact numbers for known caregivers / representatives who currently or will assist patient after discharge: RAMIRO WEST, FRIEND, * Verbal permission to speak to the caregivers and representatives has been obtained from the patient. N/A * Community resources currently utilized Other * Please name any agencies selected above. [facility] 30 DAY ADDICTION RECOVERY PROGRAM * Additional services required to return to the preadmission environment? No * Can the patient safely return to the preadmission environment? Yes * Has this patient been hospitalized within the prior 30 days at any hospital? No Last DP export: 04/01/18 4:45 pm Patient Name: Jose Guadalupe DENNIS Page 73955 at 0936 All edits/amendments must be made on the electronic document DICTATION DATE: 04/02/18934 ODD JOB LABORER: KEITH 04/02/18934 RPT#: [id number] DC DATE: STATUS: ADM IN [facility] [address] [place] [address] END OF REPORT
[2018-04-02 09:45] VITALS: BP 156/84
--- NOTE | 2018-04-02 09:46 | NUR ---
SPOKE WITH PT IN ROOM. HE ADVISED HE HAS NO DIRECT NUMBER TO DR. SÁNCHEZ/PCP AT THE [facility]. I EXPLAINED THAT DR. MCCORMACK IS RECOMMENDING A BMP LAB DRAW IN ONE WEEK AT [facility] IN [place]. PT ADVISED HE WILL NOT BE IN [place] IN ONE WEEK AND WILL NEED BMP BETWEEN 04/07-04/11 HE WILL BE GOING OUT OF TOWN AFTER THAT AND WILL NEED IT IN THE [facility] CLINIC. I ADVISED ALL I CAN DO IS FAX ORDER TO [facility] FAX # PROVIDED REQUESTING DR. SÁNCHEZ TO FOLLOW AND TOLD PT HE NEEDS TO FOLLOW UP WITH DR. SÁNCHEZ HIMSELF REGARDING LAB DRAW AND CARDIOLOGY APPT. VERBAL ACKNOWLEDGEMENT RETURNED.
--- NOTE | 2018-04-02 10:26 | NUR ---
COPY OF DISCHARGE ORDER, DISCHARGE MEDICATIONS, RECENT LAB WORK AND DISCHARGE SUMMARY FAXED TO DR. SÁNCHEZ'S OFFICE AT ME WITH REQUEST TO FOLLOW UP ON LAB ORDER AND TO CONTACT PATIENT. FAX # [phone]
--- NOTE | 2018-04-02 12:39 | NUR ---
AWAITING PATIENT TO CALL FOR RIDE TO [facility] THEN WILL GO OVER HIS DISCHARGE INSTRUCTIONS.
--- NOTE | 2018-04-02 13:07 | NUR ---
PATIENT IS CALLING [facility] AT THIS TIME FOR RIDE.
--- NOTE | 2018-04-02 14:05 | NUR ---
GENTLEMAN FROM [facility] IS HERE. PATIENT IS GETTING DRESSED. WILL REMOVE IV AND GO OVER DISCHARGE PAPERWORK WHEN DRESSED.
--- NOTE | 2018-04-02 14:21 | NUR ---
VERBAL AND WRITTEN DISCHARGE INSTRUCTIONS GIVEN TO PATIENT. SALINE LOCK REMOVED WITH CATH TIP INTACT. DISCHARGED TO [facility] VIA WHEELCHAIR.
--- NOTE | 2018-04-03 12:22 | EC ---
PATIENT:Jose Guadalupe DENNIS DATE OF SERVICE: 03/30/18 SEX: M MEDICAL RECORD: [id number] DATE OF : [birth year] LOCATION:D.M2 D.213 AGE OF PATIENT: 63 ADMISSION DATE: 03/30/18 REFERRING PHYSICIAN: INTERPRETING PHYSICIAN: ROLO ESTRADA MD ECHOCARDIOGRAM REPORT ECHO CHARGES 4 ECHO COMPLETE Date: 03/30/18 CLINICAL DIAGNOSIS: CAD, BRITT, PE ECHOCARDIOGRAPHIC MEASUREMENTS (adult normal given) AC root (d.<3.7cm) 4.3 cm LV Septum d (<1.2 cm> 1.5 cm Valve Excursion 1.8 cm LV Septum (systole) 1.8 cm Left Atria (s.<4.0cm> 3.7 cm LVPW d(<1.2cm) 1.2 cm RV (d.<2.3cm) 2.4 cm LVPW (sytole) 1.7 cm LV diastole(<5.6CM) 5.7 cm MV E-F(>70mm/sec) cm LV systole 3.8 cm LVOT Diameter 2.4 cm MV exc.(>10mm) cm Est.ejection fraction (50-75%) % DOPPLER: LVIT cm/sec A 94 cm/sec E 67 cm/sec LA cm/sec RVSP 24.9 mmHg LVOT 141 cm/sec AOP1/2T m/s Asc. Ao 128 cm/sec RVOT 65 cm/sec RA cm/sec PA 97 cm/sec AV Gradient Peak 6.6 mmHg AV Mean 4.2 mmHg AV Area 4.4 cm MV Gradient Peak 4.4 mmHg MV Mean 2.6 mmHg MV Area cm COMMENTS: Manager Quality Systems: Mayank DAHL Auto Mechanic Apprentice: 3 Dr. Martinez TAPE# PACS Pericardial Effusion N DATE OF SERVICE: Adequate 2-D echo, color flow and spectral Doppler, and M-mode. LVH is present. LV internal dimension is normal. Wall motion is normal. EF is greater than or equal to 55%. Aortic valve is sclerotic. There is no evidence of stenosis on Doppler interrogation. Left atrium is upper limits of normal at 4.0 cm. Mitral valve shows no prolapse. Mild MR. Right-sided chambers are normal. Mild TR. TRANSINT:[id number] Voice Confirmation ID: [id number] DOCUMENT ID: [id number] ECHOCARDIOGRAM REPORT [id number] Jose Guadalupe DENNIS,ROLO Vaca MD at 1222 CC: [id number] DICTATION DATE: 03/31/[address] ROAD MIXER OPERATOR: 03/31/18 1107 DIS IN 04/02/18 [place] [id number] [place] [address]
--- NOTE | 2018-04-03 12:22 | OP ---
PATIENT NAME: Jose Guadalupe DENNIS MEDICAL RECORD: [id number] :55 LOCATION:D.M2 D.2139 ADMISSION DATE:03/30/18 SURGEON: ROLO ESTRADA MD DATE OF OPERATION: 03/31/2018 PROCEDURE: Left heart catheterization, selective coronary angiography, right femoral artery approach. CATHETERS: A 5-Salvadorean sheath, 5/4 left and right Kiera, 5/4 pig. The procedure was well tolerated. The patient returned to the lopez, sheath removed. ExoSeal device placed. FINDINGS: Left ventriculography in 30-degree JIMÉNEZ view shows global hypokinesis, basically inferior akinesis, overall function reduced to 25% to 30%. CORONARY ANATOMY: LEFT MAIN: Left main fills for a short period of time, then tapers to 90% stenosis. The only vessel in the left system. CIRCUMFLEX: This fills via late collaterals. LAD: LAD is totally occluded. RIGHT CORONARY ARTERY: Fills to its midportion, totally occluded. SAPHENOUS GRAFT: #1 saphenous graft to the right coronary is widely patent throughout its course without evidence of post-anastomotic stenosis. Saphenous vein graft to the LAD, this shows a previously placed stent in its proximal portion and it is widely patent. The LAD itself gives rise again left to left collaterals of circumflex. IMPRESSION: Ischemic cardiomyopathy, patent saphenous grafts. At this point, no role for intervention. We will add Aldactone to his underlying medical regimen as the patient is already on beta-blockade and ARB. TRANSINT:[id number] Voice Confirmation ID: [id number] DOCUMENT ID: [id number] ROLO ESTRADA MD at 1222 CC: [id number] DICTATION DATE: 03/31/18 1605 AT RISK SPECIALIST: 03/31/18 1935 DIS IN 04/02/18 [facility] [address] [place] [address]
--- NOTE | 2018-04-06 11:30 | MORECARE ---
CASE MANAGEMENT DISCHARGE SUMMARY PATIENT: Jose Guadalupe DENNIS UNIT: [id number] ADM DATE: 03/30/18 AGE: 63 : 55 SEX: M ROOM/BED: D.2139 AUTHOR: ELVIN DUNN PHYSICIAN: REFERRING PHYSICIAN: SANDIE BARR MD DATE OF SERVICE: 04/06/18 Discharge Plan Patient Name: Jose Guadalupe DENNIS Facility: [facility]:[place] : 1955 Planned Disposition: Other Type of Facility Anticipated Discharge Date: 04/01/18 Discharge Date: 04/02/2018 Expected LOS: 2 Initial Reviewer: [id number] Initial Review Date: 04/01/2018 Generated: 04/06/18 12:30 pm Comments DCP- Discharge Planning Updated by [id number]: Tenzin Temple on 04/02/18 8:[address] Patient Name: Jose Guadalupe DENNIS Encounter No: [id number] : 1955 Primary Insurance: [employer]IONS DARREN Anticipated DC Date: 04-01-2018 Planned Disposition: Other Type of Facility External Planned Provider: BON JIANG DCP follow-up note: CM CALLED [facility], , SPOKE TO DU WHO ADVISED THAT THEY CAN DO BLOOD DRAW AT [facility] IF DR. SÁNCHEZ OF [facility] (PATIENTS PRIMARY CARE DOCTOR) ORDERS IT. DIGITAL PRINT OPERATOR NURSE NOTIFIED. Tenzin Temple CASE MANAGEMENT DCP- Discharge Planning Updated by [id number]: Tenzin Temple on 04/01/18 4:[address] Patient Name: Jose Guadalupe DENNIS Admission Status: ER Accout number: [id number] Admission Date: 03-30-2018 : 1955 Admission Diagnosis: Attending: SANDIE BARR Current LOS: 2 Anticipated DC Date: 04-01-2018 Planned Disposition: Other Type of Facility Primary Insurance: [employer] PRIVATE OPTIONS DARREN PLANNED EXTERNAL PROVIDER: BON JIANG Discharge Planning Comments: CM RECEIVED ORDER TO DISCHARGE ARRANGEMENT AND FOLLOW UP WITH [facility] CARDI[facility] MAY DISCHARGE TODAY. CM MET WITH PT IN ROOM TO DISCUSS DISCHARGE PLANNING AND NEEDS. PT REPORTS LIVING AT HOME INDEPENDENTLY WITH A FRIEND. PT IS CURRENTLY IN [employer] 30 DAY ADDICTION RECOVERY PROGRAM INPATIENT. PT HAS CANE, MEDICAL EQUIPMENT PROVIDER PREFERENCE IS IN. PT HAS NO OUTSIDE SERVICES ASSISTING IN THE HOME. CM DISCUSSED AVAILABILITY OF HOME HEALTH, REHAB SERVICES AND MEDICAL EQUIPMENT. PT DENIES DISCHARGE NEEDS, REPORTS [facility] COUNSELOR WILL PICK HIM UP FOR DISCHARGE WHEN PT CALLS; PT HAS PHONE NUMBER. PT IS ACTIVE WITH IN IN [place], DOES NOT HAVE CURRENT CARDIOLOGY APPOINTMENT THAT HE IS AWARE OF. PT WOULD LIKE CM TO CONTACT THE IN FOR HIM AND MAKE THE APPOINTMENT. CM CALLED [facility], , SPOKE TO GENESIS WHO INFORMED CM THAT CM WILL NEED TO FAX CONSULT ORDER AND RECORDS TO DR. SÁNCHEZ AT FAX [phone]. THE DOCTOR WILL REVIEW ORDER AND RECORDS; IF IN AGREEMENT, THEY WILL REFER PT TO CARDIOLOGY CLINIC AND CALL PT WITH APPOINTMENT DATE/TIME. CM FAXED RECORDS REQUESTED WITH THE ORDER TO [facility], ANITRA SÁNCHEZ. PT NOTIFIED AND REPORTS AGREEMENT WITH PLAN. PT WILL DISCHARGE BACK TO [facility] ADDI[facility] RECOVERY PRO[facility], PT REPORTS HE WILL CALL FOR MASONRY INSPECTOR AT DISCHARGE. [facility] HAS BEEN NOTIFIED OF NEEDED APPOINTMENT AND FAXED ORDER/RECORDS; IN DOCTOR WILL REVIEW RECORDS AND REFER TO CARDIOLOGY IF THE IN DOCTOR AGREES WITH NEED. Diversity Manager: Tenzin Temple DCPIA - Discharge Planning Initial Assessment Updated by [id number]: Tenzin Temple on 04/01/18 4:36 pm * Is the patient Alert and Oriented? Yes * How many steps to enter\exit or inside your home? NONE * PCP DR. SÁNCHEZ, [facility] IN [place] * Pharmacy [facility] OR [facility] IN [place] * Preadmission Environment Other * Other Environment [facility] * Facility Name [place] * ADLs Independent * Equipment Cane * Other Equipment [facility] - MEDICAL EQUIPMENT PROVIDER * List name and contact numbers for known caregivers / representatives who currently or will assist patient after discharge: RAMIRO WEST, FRIEND, * Verbal permission to speak to the caregivers and representatives has been obtained from the patient. N/A * Community resources currently utilized Other * Please name any agencies selected above. [facility] 30 DAY ADDICTION RECOVERY PROGRAM * Additional services required to return to the preadmission environment? No * Can the patient safely return to the preadmission environment? Yes * Has this patient been hospitalized within the prior 30 days at any hospital? No Last DP export: 04/02/18 8:35 am Patient Name: Jose Guadalupe DENNIS Page [id number] at 1130 All edits/amendments must be made on the electronic document DICTATION DATE: 04/06/18 113 LOAD TEST MECHANIC: KEITH 04/06/18 1130 RPT#: [id number] DC DATE:04/02/18 STATUS: DIS IN [facility] [address] [place] [address] END OF REPORT
== END 2018-04-02 14:25 | disposition home or self-care (01) ==
LOC: D.ER 02:49 → D.M2 04:26 → OBSVTIME 04:26 → D.M2 04-02 14:25
PROVIDERS: Family Medicine; Internal Medicine Interventional Cardiology; ADMIT Family Medicine
DX: I25.5 Ischemic cardiomyopathy (principal); I25.10 Atherosclerotic heart disease of native coronary artery without angina pectoris; E11.9 Type 2 diabetes mellitus without complications; I11.0 Hypertensive heart disease with heart failure; I50.9 Heart failure, unspecified; J44.9 Chronic obstructive pulmonary disease, unspecified; Z86.711 Personal history of pulmonary embolism; Z79.01 Long term (current) use of anticoagulants; I43 Cardiomyopathy in diseases classified elsewhere; E87.6 Hypokalemia